=== PATIENT | female | born 1995 | race Caucasian/White ===

== ENCOUNTER → 2018-11-19 | Outpatient (CLI) | payer OTHER ==
[2018-11-19 09:34] VITALS: BP 112/75; PULSE 69; RESP 18; TEMP 97.5; BMI 18.4
--- NOTE | 2018-11-19 12:38 | P.HPOB ---
History of Present Illness H&P Date: 11/19/18 Chief Complaint: The patient is here for her routine gynecologic exam and for control. This is a 23-year-old G0 within LMP of 10/16/2018. The patient is here to establish with this office. She states she has never had a pelvic exam in the past. She is interested in actively preventing . She does not want to have to take a pill every day. She has never used prescription control. She has used condoms and withdrawal for control in the past. Menarche was at age 12. Menstrual periods were somewhat irregular and she attributes this to being very underweight as a teenager. She was taken off medication for ADHD, depression, and anxiety at age 15 and did go from 90 pounds to 150 pounds. Her weight later normalized around 120 pounds. When she had the initial weight gain, menstrual periods became regular every month. She became sexually active at age 17 and has had only one sexual partner. She is still with him at this time. Review of Systems She had weight fluctuations as a teenager as in the HPI. Her weight has been normalized more recently and has been around 120 pounds. She denies respiratory , cardiac, or G.I. problems. 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 History of Any Multi-Drug Resistant Organisms: None Reported Past Surgical History: No Surgical Hx Reported Past Psychological History: ADD/ADHD, Anxiety, Depression Additional Psychological History / Comment(s): Off of medications at age 15. Smoking Status: Never smoker Past Alcohol Use History: Occasional (0-6 per month) Past Drug Use History: Marijuana Additional History: She is single and has been with her boyfriend since 2012. She works at [employer]. - Past Family History Mother Additional Family Medical History / Comment(s): Cardiac arrhythmia. Father Family Medical History: No Reported History Additional Family Medical History / Comment(s): Paternal grandmother had a pacemaker. Medications and Allergies Home Medications Medication Instructions Recorded Confirmed Type No Known Home Medications 11/19/18 11/19/18 History Allergies Allergy/AdvReac Type Severity Reaction Status Date / Time Penicillins AdvReac Mild Itching Unverified 11/19/18 09:28 Exam Vital Signs Temp Pulse Resp BP Pulse Ox 11/19/18 09:28 97.5 F L 69 18 112/75 99 Intake and Output 11/18/18 11/19/18 11/19/18 22:59 06:59 14:59 Other: Weight 53.524 kg Height 5'7", weight 118 pounds, BMI 18.5. This is a well-developed well-nourished thin white female who is alert and oriented times 3 in no acute distress. HEENT: Within normal limits. NECK: Supple without mass or thyromegaly. CHEST AND LUNGS: Clear to auscultation. HEART: Regular rate and rhythm. BREASTS: Are without mass or discharge. AXILLARY EXAM: Negative for adenopathy. BACK: Negative for CVA tenderness. ABDOMEN: Soft, nontender, without palpable masses. PELVIC EXAM: Normal external genitalia. 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 She states that this has been present for a long time and is not cause any discomfort. Cervix and vagina appear normal. There is no unusual discharge. There is no evidence of prolapse. The uterus is midposition , nongravid size and nontender. There are no palpable adnexal masses or tenderness. RECTAL EXAM: deferred EXTREMITIES: Nontender. IMPRESSION: 1. 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 Otherwise unremarkable gynecologic exam. 2. The patient is requesting control. PLAN: 1. Pap smear was performed. 2. Self breast awareness was discussed with the patient. 3. GC and chlamydia testing from the cervix has been obtained. 4. We have had a long discussion regarding the options for control. We discussed options such as oral contraception, condoms, Nuva ring, various IUDs and permanent sterilization. 5. We will have a trial with the Nuva ring. I have given detailed instructions on how to use the Nuva ring and how to insert and remove the ring. She is also considering the IUD. She will start the Nuva ring at the onset of her next normal menstrual period which is due. She'll use it as directed. We discussed possible side effects as well as possible risks including slight increased risk for blood clots, heart attack, and stroke. The electronic prescription for the Nuva ring will be sent to [facility] in [place]. 6. She will call if she has any problems with the Nuva ring or if she desires to change to an IUD. 7. She will return in one year and PRN.
== END | disposition home or self-care (01) ==
LOC: WWCWWP 08:25
PROVIDERS: ATTEND Obstetrics & Gynecology
DX: Z53.9 Procedure and treatment not carried out, unspecified reason (principal)